=== PATIENT | female | born 1990 | race Caucasian/White ===

== ENCOUNTER 2017-09-12 13:17 | Inpatient (IN) | payer BC ==
[2017-09-12] VITALS (287 sets, daily range): BP systolic 122–131; BP diastolic 72–78; PULSE 78–88; TEMP 98–98.3; O2SAT 92–100
[~2017-09-12] VITALS: Ht 172.7 cm; Wt 66.4 kg
[2017-09-12 14:08] LABS: BASO % 0.5 % (0.0-2.0); GRAN # 4.1 (1.4-6.5); HEMATOCRIT 38.8 % (37.0-47.0); HEMOGLOBIN 13.1 g/dl (12.5-16.0); LYMPH # 1.4 (1.2-3.4); LYMPH % 23.5 % (20.0-51.0); MEAN CELL VOLUME 92 fl (80.0-100.0); MEAN CORPUSCULAR HEMOGLOBIN 31 pg (27.0-31.0); MEAN CORPUSCULAR HGB CONC 34 g/dl (33.0-37.0); MEAN PLATELET VOLUME 9.1 fl (7.4-10.4); MONO # 0.3 (0.1-0.6); MONO % 5.8 % (1.7-9.3); PLATELET COUNT 272 K/mm3 (130-400); RED BLOOD COUNT 4.23 M/mm3 (4.10-5.30); REDCELL DISTRIBUTION WIDTH-CV 11.5 % (11.5-14.5)
[2017-09-12 14:12] LABS: INR 1.2 (0.8-3.0); PROTHROMBIN TIME 13.8 SECONDS (9.7-12.8)
[2017-09-12 14:14] LABS: PARTIAL THROMBOPLASTIN TIME 27.9 SECONDS (26.0-37.0)
[2017-09-12 14:20] LABS: BILIRUBIN,TOTAL 0.4 mg/dL (0.0-1.0); CALCIUM 9.2 mg/dL (8.4-10.2); CREATININE, serum 0.59 mg/dL (0.52-1.25); POTASSIUM 3.5 mmol/L (3.4-5.0); TOTAL PROTEIN 7.8 gm/dL (6.4-8.2)
[2017-09-12] MEDS ORDERED: ZITHROMAX 250M250 MG PO (14:38)
[2017-09-12] MEDS ORDERED: ZANAFLEX 4MG TAB4 MG PO (14:39)
[2017-09-12] MEDS ORDERED: ABSORICA30 MG PO (14:40)
[2017-09-12] MEDS ORDERED: SPRINTEC 35 MCG1 TAB PO (14:40)
[2017-09-12] MEDS ORDERED: ADVIL200 MG PO (16:57)
[2017-09-12 18:35] LABS: TROPONIN-I < 0.012 ng/mL (0.000-0.034)
[2017-09-13] VITALS (243 sets, daily range): BP systolic 113–128; BP diastolic 71–82; PULSE 57–88; TEMP 97.7–99; O2SAT 89–100
[2017-09-13 19:59] LABS: HOMOCYSTEINE 3.2 umol/L (4.0-14.0)
[2017-09-14 04:45] VITALS: BP 113/69; PULSE 60; TEMP 97.9
[2017-09-14 07:20] VITALS: BP 118/64; PULSE 58; TEMP 98.2
[2017-09-14 11:01] VITALS: BP 114/68; PULSE 89; TEMP 98.6
[2017-09-14 11:32] LABS: PROCALCITONIN 0.02 ng/mL (0.00-0.09)
[2017-09-14 20:09] VITALS: BP 126/79; PULSE 65; TEMP 98.4
[2017-09-14 23:47] VITALS: BP 118/76; PULSE 68; TEMP 98.3
[2017-09-15 04:10] VITALS: BP 121/77; PULSE 68; TEMP 97.7
[2017-09-15] MEDS ORDERED: XARELTO20 MG PO (07:22)
[2017-09-15 07:57] VITALS: BP 1334/81; BP 134/81; PULSE 87; TEMP 98.2
[2017-09-15 08:25] LABS: FACTOR V LEIDEN MUTATION B Negative (Negative); PT G20210A MUTATION B Negative (Negative)
[2017-09-15] MEDS ORDERED: XARELTO15 MG PO (10:14)
[2017-09-15 10:36] LABS: CALCIUM 9.2 mg/dL (8.4-10.2); CREATININE, serum 0.67 mg/dL (0.52-1.25); POTASSIUM 3.9 mmol/L (3.4-5.0)
[2017-09-15 11:48] VITALS: BP 124/78; PULSE 79; TEMP 98.9
[2017-09-16 08:48] LABS: PROTEIN C ACTIVITY 94 % (70-150)
[2017-09-16 09:55] LABS: ANTI-THROMBIN III 121 % (72-128)
[2017-09-16 12:31] LABS: LUPUS ANTICOAGULANT INR 1.4 (()); LUPUS ANTICOAGULANT PT 15.2 sec (())
== END 2017-09-15 14:50 | disposition home or self-care (01) | DRG 175 ==
LOC: COL.ER 13:17 → ICU 13:51 → MEDICAL 09-13 13:17
PROVIDERS: Emergency Medicine; Internal Medicine Pulmonary Disease; Nurse Practitioner Family
DX: I26.99 Other pulmonary embolism without acute cor pulmonale (principal); J18.9 Pneumonia, unspecified organism; J90 Pleural effusion, not elsewhere classified; T38.4X5A Adverse effect of oral contraceptives, initial encounter
CPT/HCPCS: 99222-AI; 99232-AI; 99233-AI; 99239; J0696; J1650; J7030

== ENCOUNTER → 2017-09-12 | Outpatient (CLI) | payer BC ==
[~2017-09-12] MED LIST: ABSORICA30 MG PO; ADVIL200 MG PO; SPRINTEC 35 MCG1 TAB PO; XARELTO15 MG PO; XARELTO20 MG PO; ZANAFLEX 4MG TAB4 MG PO; ZITHROMAX 250M250 MG PO
== END ==
LOC: COL.RAD 12:11
DX: I26.99 Other pulmonary embolism without acute cor pulmonale (principal); J18.1 Lobar pneumonia, unspecified organism; J90 Pleural effusion, not elsewhere classified
CPT/HCPCS: Q9967

== ENCOUNTER → 2017-09-26 | Outpatient (CLI) | payer BC | LOC: COL.VAS 13:18 | DX: M25.561 Pain in right knee (principal) ==

== ENCOUNTER → 2017-12-29 | Outpatient (CLI) | payer BC | LOC: COL.RAD 12-18 10:00 | DX: J84.10 Pulmonary fibrosis, unspecified (principal) | CPT/HCPCS: Q9967 ==